=== PATIENT | male | born 2000 | race Caucasian/White ===

== ENCOUNTER 2023-06-19 21:41 | Emergency (ER) | payer OTHER, SELFPAY ==
[2023-06-19 21:42] VITALS: BP 105/73; PULSE 101; RESP 15; TEMP 37.2; O2SAT 97; BMI 24.7
--- NOTE | 2023-06-19 22:24 | CT_ITS ---
INDICATION: Left buttock area abscess possible X4 days, fever. EXAMINATION: CT ABDOMEN AND PELVIS WITH CONTRAST - CT Abdomen And Pelvis W/ Contrast Injection TECHNIQUE: Helically acquired images were obtained of the abdomen and pelvis with sagittal and coronal reconstructed images. Individualized dose optimization techniques were used for this CT. IV contrast dosage and agent: 100 mL of Isovue-370. Oral contrast: Contrast seen in the small bowel. COMPARISON: None. FINDINGS: VESSELS: No abdominal aortic aneurysm or dissection. LIVER: Anterior right lobe hemangioma. 2.7 x 2.2 x 2.2 cm area of heterogeneous soft tissue density with adjacent fat stranding in the medial gluteal subcutaneous soft tissues. No homogeneous fluid attenuation. No intrahepatic or extrahepatic biliary duct dilation. GALLBLADDER: No calcified stones. No evidence of cholecystitis. PANCREAS: No focal solid or cystic mass. No evidence of pancreatitis. SPLEEN: Normal. ADRENAL GLANDS: Normal. KIDNEYS AND URETERS: No urinary tract stone. No hydronephrosis or hydroureter. No significant asymmetric perinephric stranding. URINARY BLADDER: Unremarkable. BOWEL: No evidence of diverticulosis or diverticulitis. Appendix appears normal. No evidence of bowel obstruction. REPRODUCTIVE ORGANS: No evidence of a pelvic mass. PERITONEUM: No intraabdominal free fluid or free air. LYMPH NODES: No pathologically enlarged mesenteric or retroperitoneal lymph nodes. ABDOMINAL WALL: No abdominal or pelvic wall hernia. BONES: No acute abnormality. LOWER CHEST: Visualized lung bases are clear. CT/Abdomen/Pelvis WITH Contrast IMPRESSION: 2.7 x 2.2 x 2.2 cm area of heterogeneous soft tissue density with adjacent fat stranding in the medial gluteal subcutaneous soft tissues. No homogeneous fluid attenuation. Findings most likely represent phlegmonous change and a developing abscess. Electronically Signed: Oscar Larsen DO at 1:06 EDT ,
--- NOTE | 2023-06-19 22:25 | EX.ED.DYSGE1 ---
HPI History of Present Illness Chief Complaint: Fever Informant: patient Narrative Narrative: Patient presents with primary complaint of fever and sore area in his left lower buttock. He states he noticed a little bit of fullness and soreness of the left lower buttock about 4 days ago. He states it has gotten a little bit bigger. It is a little bit sore mostly to sit. He is still moving his bowels. He states it does hurt a little bit to move his bowels but he is able to do it easily. For about 2 days he has had some intermittent fevers. He has no other symptoms that would be causing this. He is eating and drinking fine. He has no medical conditions no medicines that he takes and no allergies. He has had no surgeries. He denies any history of Crohn's or ulcerative colitis. He denies he is running in his family. On review of systems I do find out that he gets softer stools or some mild diarrhea more commonly than most people but not all the time and has never had blood in the stool. He has never had anything like this before. PFSH PFSH Home Medications amoxicillin 875 mg-potassium clavulanate 125 mg tablet 1 tab PO BID #20 tabs 06/20/23 [Rx Last Taken Unknown] hydrocodone-acetaminophen 5-325mg 5mg-325mg 1 tab PO Q6H PRN PRN Pain 3 days #10 TABLETS 06/20/23 [Rx Last Taken Unknown] Allergy/AdvReac Type Severity Reaction Status Date / Time No Known Allergies Allergy Verified 06/19/23 21:47 Social History Smoking Status: Never smoker ROS ROS ED ROS Narrative A complete review of systems was performed and is negative except as documented in the history of present illness. Some specific details below. Constitutional: He has had fevers and chills for about 2 days. No notable malaise. EYE: No visual complaints or pain. ENT: No difficulty swallowing. No swelling. No pain. CV: No chest pain or palpitations. Respiratory: No dyspnea. No hemoptysis. No difficulty taking breaths. GI: Please see history of present illness. He is eating and drinking moving his bowels just fine. : No frequency dysuria or hematuria. No difficulty starting or stopping stream. Musculoskeletal: No recent trauma. No pains. Skin: No rash that he can see. Nondiaphoretic. Neuro: No weakness or numbness. Endocrine: No polyuria or polydipsia. EXAM Physical Exam Narrative Exam Narrative: CONSTITUTIONAL: Patient is nontoxic in appearance. The patient looks comfortable. HEENT: No notable trauma. Mucous membranes moist. EYES: No conjunctival injection. No proptosis. CARDIOVASCULAR: Regular rate at about 90. Regular rhythm. No notable murmur. No JVD. RESPIRATORY: No respiratory distress. Breathing is unlabored. No wheezes. No rhonchi. No rales. No pain with a deep breath. GASTROINTESTINAL: Not distended. Bowel sounds are normal. No tenderness. No guarding. No rebound. No palpable mass. No bruit. Overall abdomen is very benign. GENITOURINARY: No tenderness over the bladder. No CVA tenderness. No tenderness of testicles scrotum or penile area. No erythema or swelling in the inguinal region. I had the patient lay also on his side. He does have some fullness and firmness to the left buttock area inferior and lateral to the anus. The anus is not at all swollen or red. There is no lesions there. The anus itself does not seem to be tender but when I press toward the 7:00 to 8:00 area into the soft tissue of the buttock it is sore. I do not see any external skin lesion other than mild erythema. The area is not fluctuant to exam. MUSCULOSKELETAL: Atraumatic. No peripheral edema. No cord. No tenderness along the deep venous system. No asymmetry. NEUROLOGICAL: Patient is alert and appropriate. No focal deficit noted. SKIN: No noted rashes. No diaphoresis. PSYCHIATRIC: Patient is calm. Mood is appropriate. Const Vital Signs: 06/19/23 21:42 06/19/23 22:11 06/19/23 21:42 Temperature 99.0 F 99 F Temperature Source Temporal Oral Pulse Rate 101 H 101 H Respiratory Rate 15 15 Respiratory Effort Normal Non-Labored Respiratory Pattern Normal Blood Pressure 105/73 105/73 Blood Pressure Mean 83 83 Pulse Ox 97 97 Oxygen Delivery Method Room Air Room Air MDM MDM MDM Narrative Medical decision making narrative: Patient CBC does show mild elevation of the white count consistent with infection remainder of CBC is overall normal. Patient's electrolytes show minimally low potassium that should self correct. Patient's glucose is minimally up at 109 this does not need acute treatment. My independent interpretation of his CT does show inflammatory changes in the left buttock. Final reading is consistent with this with possible developing abscess but no definitive abscess. I talked with the patient about the findings. I explained that we probably would not make an incision to look for drainage of purulent material and the CT does not show an abscess. This may end up draining on its own. This could end up getting significantly larger and even requiring outpatient drainage or possible admission and surgical drainage. But this patient is overall healthy. He has no known immunosuppression. He takes no medicines. He has no diabetes. He is eating and drinking well. We will try him on outpatient antibiotics. But we explained that he should be getting better within a few days. We discussed specific reasons to return that would include but not limited to nausea vomiting, persistent fevers, more swelling pain or difficulty moving bowels. We also discussed increasing fiber and fluids while on pain meds. I also did review his online prescribing report that shows a single prescription for narcotics about 1 year ago. Lab Data Attestation: I reviewed the patient's lab results. Labs: Laboratory Results - last 24 hr 06/19/23 22:00 WBC 13.5 H RBC 4.92 Hgb 15.2 Hct 45.5 MCV 92.5 MCH 30.9 MCHC 33.4 RDW Std Deviation 42.2 RDW Coeff of [place] 12.3 Plt Count 252 MPV 9.3 Immature Gran % (Auto) 0.400 Neut % (Auto) 70.0 Lymph % (Auto) 14.4 L [place] % (Auto) 14.3 H Eos % (Auto) 0.8 Baso % (Auto) 0.1 Absolute Neuts (auto) 9.4 H Absolute Lymphs (auto) 1.94 Nucleated RBC % 0 Differential Comment SCANNED Diff Path Review May foll Sodium 140 Potassium 3.3 L Chloride 106 Carbon Dioxide 30.0 Anion Gap 4 L BUN 13 Creatinine 1.14 Estim Creat Clear Calc 106.42 Est GFR (MDRD) Af Amer 101 Est GFR (MDRD) Non-Af 83 BUN/Creatinine Ratio 11.4 Glucose 109 H Calcium 9.3 Radiography Diagnostic Testing: Clinical Impression(s) from Imaging Studies Abdomen/Pelvis CT 06/19/23 22:24 IMPRESSION: 2.7 x 2.2 x 2.2 cm area of heterogeneous soft tissue density with adjacent fat stranding in the medial gluteal subcutaneous soft tissues. No homogeneous fluid attenuation. Findings most likely represent phlegmonous change and a developing abscess. Electronically Signed: Oscar LarsenDO at 1:06 EDT , Discharge Plan Triage Chief Complaint: Fever ED Provider: Gato Bearden Dx/Rx/DC Orders Clinical Impression: Leukocytosis, Perianal abscess Instructions: ED ABSCESS [facility]-Anal Abx only Prescriptions: New amoxicillin-pot clavulanate 875-125 mg tablet 1 tab PO BID Qty: 20 0RF hydrocodone-acetaminophen [hydrocodone-acetaminophen] 5-325 mg tablet 1 tab PO Q6H PRN PRN (Reason: Pain) 3 Days Qty: 10 0RF Primary Care Provider: Care Physician,No Primary Referrals: Ariadne Dolan MD [Med Staff - Active Staff] - 1-2 Days if not improving Care Physician,No Primary [Primary Care Provider] - Disposition Disposition: Home, Self Care
[2023-06-19 23:31] LABS: Anion Gap 4 (5-15); BUN 13 mg/dL (7-18); BUN/Creat Ratio 11.4 RATIO (10-20); Calcium,Total 9.3 mg/dL (8.5-10.1); Chloride 106 mmol/L (98-107); Creatinine, Serum 1.14 mg/dL (0.70-1.30); EST Glomerular Filtration Rate 83 mL/min (>60); Est Glom Filt Rate - Afr Amer 101 mL/min (>60); Estimated Creatinine Clearance 106.42 ml/min; Glucose 109 mg/dL (74-106); Potassium 3.3 mmol/L (3.5-5.1); Sodium Level 140 mmol/L (136-145)
[2023-06-20 00:02] LABS: Absolute Lymphocyte Count 1.94 X10^3/uL (0.83-4.51); Absolute Neutrophil Count 9.4 X10^3/uL (2.0-7.7); Basophil# 0.02 X10^3/uL; Basophil% 0.1 % (0-1); Eosinophil# 0.11 X10^3/uL; Eosinophils% 0.8 % (0-5); Hematocrit 45.5 % (40-54); Hemoglobin 15.2 g/dL (13.0-16.5); Lymphocyte # 1.94 X10^3/ul (0.83-4.51); Lymphocyte % 14.4 % (19-41); Mean Corp Hgb Conc 33.4 g/dL (32-36); Mean Corpuscular Hgb 30.9 pg (27.0-32.0); Mean Corpuscular Volume 92.5 fL (80-94); Mean Platelet Vol. 9.3 fl (6.2-12.0); Monocyte# 1.92 X10^3/uL; Monocyte% 14.3 % (0-10); NRBC Flagged by Analyzer 0 % (0-5); Neutrophil # 9.43 X10^3/uL (2.7-7.7); POSITIVE DIFFERENTIAL YES; Platelet Count 252 K/mm3 (150-450); RBC Distribution Width CV 12.3 % (11.6-14.6); RBC Distribution Width SD 42.2 fl (35.1-43.9); Red Blood Count 4.92 M/mm3 (4.6-6.2); White Blood Count 13.5 K/mm3 (4.4-11.0)
[2023-06-20 00:10] LABS: Differential Indicated SCAN CRITERIA MET
[2023-06-20 00:50] LABS: Differential Comment SCANNED
[2023-06-20 01:58] VITALS: BP 105/74; PULSE 74; RESP 16; TEMP 37.1
[2023-06-20] MEDS: Amox/Clavulanate 875 MG Tablet PO (02:23)
[2023-06-20 02:28] VITALS: BP 105/74; PULSE 75; RESP 15; O2SAT 97
[2023-06-21 15:45] LABS: Pathologist Review Reviewed
== END 2023-06-20 02:29 | disposition home or self-care (01) ==
PROVIDERS: Emergency Provider Emergency Medicine; Visit Provider Emergency Medicine
DX: D72.829 Elevated white blood cell count, unspecified (principal); K61.0 Anal abscess
CPT/HCPCS: 74177; 80048; 85025; 96365; 96366; 99283; J7030; Q9967; A4216; J0295

== ENCOUNTER 2023-07-27 18:09 | Emergency (ER) | payer OTHER, SELFPAY ==
[2023-07-27 18:10] VITALS: BP 118/83; PULSE 102; RESP 18; TEMP 36.1; O2SAT 99; BMI 24.8
== END 2023-07-27 21:36 | disposition left against medical advice (07) ==
LOC: ED 21:39
DX: Z53.21 Procedure and treatment not carried out due to patient leaving prior to being seen by health care provider (principal)